=== PATIENT | female | born 1990 | race Caucasian/White ===

== ENCOUNTER 2024-06-13 11:55 | Emergency (ER) | payer BC, SELFPAY ==
--- NOTE | ~2024-06-13 | CT_ITS ---
CLINICAL HISTORY: Lower abdominal pain with hematochezia CT abdomen and pelvis without contrast Comparison: None Findings: The lung bases are clear. There is hepatic steatosis. The gallbladder, pancreas, spleen, and adrenal glands are unremarkable. There are several bilateral nonobstructing renal stones measuring up to 6 mm in the right kidney. There is no hydronephrosis. The appendix is normal. The remainder of the gastrointestinal tract is unremarkable. There is no free fluid or free air. There are no enlarged lymph nodes. Uterus and adnexa are grossly unremarkable. There is no fracture or suspicious lytic or sclerotic lesion IMPRESSION: 1. No acute abnormality in the abdomen or pelvis. 2. Bilateral nonobstructing renal stones. 3. Hepatic steatosis. This document has been electronically signed by: Javon Machado MD on 06/13/2024 20:11:05
[2024-06-13 12:29] VITALS: BP 153/99; PULSE 80; RESP 16; TEMP 36.5; O2SAT 99; BMI 31.0
--- NOTE | 2024-06-13 12:29 | ED.GENADULT ---
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 no family history of ulcerative colitis or Crohn disease been having bright red rectal bleed for last 6 days whenever she moves her bowel small amount of blood clots no dizziness no shortness a breath hemoglobin 13.8 prior to my evaluation Related Data Previous Rx's ?Medication ?Instructions ?Recorded hydrocortisone acetate 25 mg 25 mg [place] BID #12 ea 06/13/24 rectal suppository (Anusol-HC) Allergies Allergy/AdvReac Type Severity Reaction Status Date / Time No Known Allergies Allergy Verified 06/13/24 12:31 Review of Systems Review of Systems: Yes all other systems are reviewed and are negative [facility] Social History Social History Alcohol intake: current Alcohol intake frequency: holidays/special occasions only Smoked in Last 30 Days: Yes Use of substances other than those prescribed or required for medical reasons: Yes Substance Use Type: Marijuana Substance Use Frequency: Daily Advance Directives: No Advance Directives Information Provided: Yes Patient : No Physical Exam ED Vital Signs: Vital Signs - 24 hr 06/13/24 12:29 06/13/24 19:08 06/13/24 20:45 Temperature 97.7 F 98.1 F 97.7 F Pulse Rate 80 74 69 Respiratory Rate 16 16 15 Blood Pressure 153/99 H 131/79 132/86 Pulse Oximetry 99 98 97 Oxygen Delivery Method Room Air Room Air Room Air 06/13/24 20:53 Temperature 97.7 F Pulse Rate 69 Respiratory Rate 15 Blood Pressure 132/86 Pulse Oximetry 97 Oxygen Delivery Method Room Air BMI result Body Mass Index 31.0 Appearance: Alert. Oriented X3. No acute distress. Eyes: PERRLA, No Nystagmus ENT: Pharynx normal. Oral Mucosa moist Neck: Normal inspection. Neck supple. CVS: Normal heart rate and rhythm. Pulses normal. Respiratory: No respiratory distress. Equal air entry bilateral, no wheezing/rales/rhonchi Abdomen: Soft and mild deep tenderness suprapubic and left lower quadrant Bowel sounds are present, no mass palpable, no CVA tenderness Skin: Skin warm and dry. Normal skin color. Normal skin turgor. Extremities: No lower extremity edema. No calf tenderness Neuro: Oriented X 3. No motor deficit. Course Course Course Narrative: This is a rapid medical exam performed by Siddhartha Yao NP: Additional HPI, ROS, PE not included below will be deferred to primary provider. Patient is a 34-year-old female with history of hemorrhoids presenting with 6 days of bright red rectal bleeding, lightheadedness, lower abdominal cramping. Has been seeing PCP for other issues, can't see GI until August. LMP finished a few days ago. Plan: labs, UA Medical Decision Making Medical Decision Making MDM Narrative: Patient with fresh blood per rectum with stable H&H CT scan of the abdomen negative does have history of hemorrhoids likely the cause for rectal bleed advised to follow with surgeon Lab Data MDM Lab Attestation statement: I reviewed the patient's lab results. 06/13/24 12:35 06/13/24 12:35 Labs: Lab Results 06/13/24 06/13/24 Range/Units 12:35 19:26 WBC 7.9 (4.8-10.8) X10*3/uL RBC 4.47 (4.20-5.50) X10*6/uL Hgb 13.8 (12.0-16.0) g/dl Hct 41.5 (37.0-47.0) % MCV 92.8 (80.0-98.0) fL MCH 30.9 (27.0-33.0) pg MCHC 33.3 (31.0-35.0) g/dl RDW 12.1 (11.0-16.0) % Plt Count 330 (160-400) X10*3/uL MPV 9.6 (9.4-12.3) fL Immature Gran % (Auto) 0.4 (0.0-0.4) % Neut % (Auto) 45.9 (45-73) % Lymph % (Auto) 43.1 H (20-40) % [place] % (Auto) 7.3 (2-11) % Eos % (Auto) 2.0 (0-4) % Baso % (Auto) 1.3 (0-2) % Lymph # (Auto) 3.4 (1.2-4.9) X10*3/uL [place] # (Auto) 0.6 (0.1-1.2) X10*3/uL Eos # (Auto) 0.2 (0.0-0.4) X10*3/uL Baso # (Auto) 0.1 (0.0-0.2) X10*3/uL Abs Immat Gran (auto) 0.03 (0.00-0.03) X10*3/uL Absolute Neuts (auto) 3.6 (2.0-8.3) x10*3/uL Absolute Nucleated RBC 0.000 (0.0-0.012) X10*3/uL Nucleated RBC % (auto) 0.0 (0.0-0.2) /100WBC Sodium 138 (135-145) mmol/L Potassium 4.2 (3.3-5.1) mmol/L Chloride 108 (96-108) mmol/L Carbon Dioxide 24 (22-29) mmol/L Anion Gap 10 L (12-20) BUN 10 (9-16) mg/dL Creatinine 0.63 (0.5-1.4) mg/dL Estim Creat Clear Calc 125.5 Estimated GFR > 60 Random Glucose 100 (60-115) mg/dL Calcium 9.2 (8.4-10.2) mg/dL Total Bilirubin 0.3 (0.0-1.0) mg/dL AST 42 H (5-31) U/L ALT 67 H (0-31) U/L Alkaline Phosphatase 106 (39-117) U/L Total Protein 7.4 (6.5-8.0) g/dL Albumin 4.3 (3.5-5.0) g/dL Beta HCG, Quant < 2 mIU/mL Urine Color Yellow Urine Appearance Clear Urine pH 6.0 (5.0-9.0) Ur Specific [place] 1.020 (1.005-1.025) Urine Protein Negative (Neg-Trace) mg/dL Urine Glucose (UA) Negative (Negative) mg/dL Urine Ketones Trace (Negative) mg/dL Urine Blood Negative (Negative) Urine Nitrite Negative (Negative) Ur Leukocyte Esterase Negative (Negative) Discharge Plan Discharge Clinical Impression: Hemorrhoids Patient Disposition: Home, Self-Care Instructions: Hemorrhoids (ED) Additional Instructions: Avoid straining/constipation Use suppositories as prescribed twice a day Follow up with surgeon Prescriptions: New hydrocortisone acetate [Anusol-HC] 25 mg suppository 25 mg [place] BID Qty: 12 0RF Referrals: Nathanael Diaz MD [Physician] - 1 week Interventions: ED Discharge Assessment Last Done: 06/13/24 20:53 Discharge Date/Time: 06/13/24 20:53 Print Language: Greenlandic
--- OUTSIDE RECORDS SUMMARY | 2024-06-13 12:41 | XMS_ITS ---
Author Name [facility] Organization Unknown History of Medication Use Medication Directions Dispensed Refills Start Date End Date Status Ganciclovir (VIRGAN) 0.15 % Gel ophthalmic gel Administer 1 drop into the left eye 5 (five) times a day. 08/12/19 24 aborted FLUoxetine (PROzac) 20 MG capsule Take 20 mg by mouth every morning. 08/12/19 24 active Metoprolol Succinate 100 MG Capsule ER 24 Hour Sprinkle metoprolol succinate 11/10/19 active metoPROLOL SUCCINATE (TOPROL-XL) 25 MG 24 hr tablet Take 25 mg by mouth daily. 08/12/19 24 aborted valACYclovir (VALTREX) 1000 MG tablet Take 1 tablet (1,000 mg total) by mouth 3 (three) times a day. 08/12/19 24 active metroNIDAZOLE (METROGEL) 0.75 % vaginal gel Insert 37.5 mg (1 Applicatorful total) into the vagina nightly. 11/14/19 23 active ondansetron (ZOFRAN-ODT) 4 MG disintegrating tablet Take 1 tablet (4 mg total) by mouth 3 times daily (every 8 hours) as needed for nausea or vomiting. Place tablet on tongue to dissolve. 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
[2024-06-13 12:42] LABS: MANUAL DIFF FLAG NO
[2024-06-13 12:43] LABS: Basophils Absolute Auto 0.1 X10*3/uL (0.0-0.2); Basophils Percent Auto 1.3 % (0-2); Eosinophils Absolute Auto 0.2 X10*3/uL (0.0-0.4); Hematocrit 41.5 % (37.0-47.0); Hemoglobin 13.8 g/dl (12.0-16.0); Imm Gran Abs Auto 0.03 X10*3/uL (0.00-0.03); Imm Gran Pct Auto 0.4 % (0.0-0.4); Lymphocytes Absolute Auto 3.4 X10*3/uL (1.2-4.9); Lymphocytes Percent Auto 43.1 % (20-40); Mean Corpuscular HGB Conc 33.3 g/dl (31.0-35.0); Mean Corpuscular Hemoglobin 30.9 pg (27.0-33.0); Mean Corpuscular Volume 92.8 fL (80.0-98.0); Mean Platelet Volume 9.6 fL (9.4-12.3); Monocytes Absolute Auto 0.6 X10*3/uL (0.1-1.2); Monocytes Percent Auto 7.3 % (2-11); Neutrophils Absolute Auto 3.6 x10*3/uL (2.0-8.3); Neutrophils Percent Auto 45.9 % (45-73); Platelet Count 330 X10*3/uL (160-400); Red Blood Count 4.47 X10*6/uL (4.20-5.50); Red Cell Distribution Width 12.1 % (11.0-16.0); White Blood Count 7.9 X10*3/uL (4.8-10.8)
[2024-06-13 13:05] LABS: Alanine Aminotransferase 67 U/L (0-31); Albumin Level 4.3 g/dL (3.5-5.0); Alkaline Phosphatase 106 U/L (39-117); Anion Gap 10 (12-20); Aspartate Amino Transferase 42 U/L (5-31); Bilirubin Total 0.3 mg/dL (0.0-1.0); Blood Urea Nitrogen 10 mg/dL (9-16); Calcium 9.2 mg/dL (8.4-10.2); Carbon Dioxide 24 mmol/L (22-29); Chloride 108 mmol/L (96-108); Creatinine Clr Calc Pharmacy 125.5; Estimated Glomerular Filt Rate > 60; Glucose Random 100 mg/dL (60-115); Potassium 4.2 mmol/L (3.3-5.1); Sodium 138 mmol/L (135-145); Total Protein 7.4 g/dL (6.5-8.0)
[2024-06-13 13:08] LABS: HCG Quantitative < 2 mIU/mL
[2024-06-13 19:08] VITALS: BP 131/79; PULSE 74; RESP 16; TEMP 36.7; O2SAT 98
[2024-06-13 19:33] LABS: Appearance Urine Clear; Color Urine Yellow; Glucose Urine UA Negative (Negative); Leukocyte Esterase Urine Negative (Negative); Nitrite Urine Negative (Negative); Urine Blood Negative (Negative); Urine Ketones Trace mg/dL (Negative); Urine Protein Negative (Neg-Trace)
[2024-06-13 20:45] VITALS: BP 132/86; PULSE 69; RESP 15; TEMP 36.5; O2SAT 97
[2024-06-13 20:53] VITALS: BP 132/86; PULSE 69; RESP 15; TEMP 36.5; O2SAT 97
== END 2024-06-13 20:53 | disposition home or self-care (01) ==
PROVIDERS: Registered Nurse Emergency; Emergency Provider Internal Medicine; PCP Internal Medicine
DX: K64.8 Other hemorrhoids (principal); R10.2 Pelvic and perineal pain; Z79.899 Other long term (current) drug therapy
CPT/HCPCS: 36415; 74176; 80053; 81003; 84702; 85025; 99284

== ENCOUNTER → 2024-06-13 19:17 | Outpatient (BNV) | payer BC, SELFPAY | PROVIDERS: Emergency Provider Internal Medicine; PCP Internal Medicine; Visit Provider Radiology Diagnostic Radiology | DX: N20.0 Calculus of kidney (principal) | CPT/HCPCS: 74176 ==